=== PATIENT | male | born 1965 | race Caucasian/White ===

== ENCOUNTER 2023-02-15 11:16 | Inpatient (IN) | payer OTHER ==
[2023-02-15 11:35] VITALS: BMI 29.3
[2023-02-15] MEDS ORDERED: IBUPROFEN 400 MG TABLET (FP) PO PRN (13:10)
[2023-02-15] MEDS ORDERED: NALOXONE HCL 0.4 MG/ML VIAL IM PRN (13:10)
[2023-02-15] MEDS ORDERED: hydrOXYzine PAMOATE 25 MG CAPSULE (FP) PO PRN (13:10)
[2023-02-15] MEDS ORDERED: guaiFENesin 600 MG TABLET.ER (FP) PO PRN (13:10)
[2023-02-15] MEDS ORDERED: POLYETHYLENE GLYCOL (HEALTHYLAX) 3350 17 GM PACKET PO PRN (13:10)
[2023-02-15] MEDS ORDERED: BISMUTH SUBSALICYLATE 524 MG/30 ML PO PRN (13:10)
[2023-02-15] MEDS ORDERED: IBUPROFEN 600 MG TABLET (FP) PO PRN (13:10)
[2023-02-15] MEDS ORDERED: MAGNESIUM HYDROX 2400MG/30ML ORAL SUSPENSION 30 ML CUP PO PRN (13:10)
[2023-02-15] MEDS ORDERED: ONDANSETRON *ODT* 4 MG TABLET SL PRN (13:10)
[2023-02-15] MEDS ORDERED: BENZOCAINE/MENTHOL (CHLORASEPTIC ) LOZENGE MM PRN (13:10)
[2023-02-15] MEDS ORDERED: ACETAMINOPHEN 325 MG TABLET (FP) PO PRN (13:10)
[2023-02-15] MEDS ORDERED: DICYCLOMINE HCL 10 MG CAPSULE PO PRN (13:10)
[2023-02-15] MEDS ORDERED: BENZONATATE 200 MG CAPSULE PO PRN (13:10)
[2023-02-15] MEDS ORDERED: NALOXONE HCL (KLOXXADO) 8 MG SPRAY NS PRN (13:10)
[2023-02-15] MEDS ORDERED: MAG HYDROX/AL HYDROX/SIMETH 30 ML UNIT-DOSE CUP PO PRN (13:10)
[2023-02-15] MEDS ORDERED: LOPERAMIDE HCL 2 MG CAPSULE PO PRN (13:10)
[2023-02-15] MEDS ORDERED: NICOTINE 14 MG/24 HOURS TOPICAL PATCH TD ONE (13:38)
[2023-02-15] MEDS ORDERED: PRENATAL VITAMINS W/ FOLIC ACID TABLET (FP) PO ONE (13:39)
[2023-02-15] MEDS: PRENATAL VITAMINS W/ FOLIC ACID TABLET (FP) PO SCH (13:43)
[2023-02-15] MEDS: NICOTINE 14 MG/24 HOURS TOPICAL PATCH TD SCH (13:43)
[2023-02-15] MEDS: LORazepam 1 MG TABLET PO PRN (14:25)
[2023-02-15 14:55] LABS: HEMATOCRIT 41.6 % (35.4-49); HEMOGLOBIN 13.3 GM/dL (11.7-16.9); MCH 29.1 pg (25.7-33.7); MEAN CELL VOLUME 91.1 fl (80-96); MEAN PLT VOLUME 8.3 fl (7.5-11.1); PLATELET COUNT 252 10^3/uL (134-434); RBC 4.56 M/mm3 (4.00-5.60); WHITE BLOOD COUNT 7.9 K/mm3 (4.0-10.0)
[2023-02-15 15:02] LABS: POTASSIUM 4.9 mmol/L (3.5-5.1)
[2023-02-15 15:07] LABS: ALBUMIN 3.6 g/dl (3.4-5.0)
[2023-02-15 15:08] LABS: BLOOD UREA NITROGEN 13.1 mg/dL (7-18); CALCIUM 9.6 mg/dL (8.5-10.1)
[2023-02-15 15:11] LABS: CREATININE 1.2 mg/dL (0.55-1.3)
[2023-02-15 15:12] LABS: BILIRUBIN,TOTAL 0.3 mg/dL (0.2-1); TOT PROT 7.5 g/dl (6.4-8.2)
[2023-02-15] MEDS: LORazepam 2 MG TABLET PO SCH ×2 (17:22→22:28)
[2023-02-15] MEDS: MELATONIN 5 MG TABLETS PO SCH (22:26)
[2023-02-15] MEDS: THIAMINE HCL 100 MG TABLET (FP) PO SCH (22:27)
[2023-02-16] MEDS: LORazepam 2 MG TABLET PO SCH ×4 (05:18→22:07)
[2023-02-16] MEDS: PRENATAL VITAMINS W/ FOLIC ACID TABLET (FP) PO SCH (10:13)
[2023-02-16] MEDS: NICOTINE 14 MG/24 HOURS TOPICAL PATCH TD SCH (10:13)
[2023-02-16] MEDS ORDERED: INSULIN SLIDING SCALE (NOVOLOG) 1 VIAL SQ SCH (16:30)
[2023-02-16] MEDS: MELATONIN 5 MG TABLETS PO SCH (22:07)
[2023-02-16] MEDS: THIAMINE HCL 100 MG TABLET (FP) PO SCH (22:07)
[2023-02-16] MEDS: METHOCARBAMOL 500 MG TABLET PO PRN (22:08)
[2023-02-17] MEDS: LORazepam 1 MG TABLET PO SCH ×4 (05:07→22:20)
[2023-02-17] MEDS: INSULIN SLIDING SCALE (NOVOLOG) 1 VIAL SQ SCH ×3 (07:10→16:39)
[2023-02-17] MEDS: NICOTINE 14 MG/24 HOURS TOPICAL PATCH TD SCH (10:15)
[2023-02-17] MEDS: PRENATAL VITAMINS W/ FOLIC ACID TABLET (FP) PO SCH (10:15)
[2023-02-17] MEDS: LORazepam 1 MG TABLET PO PRN (13:25)
[2023-02-17] MEDS: THIAMINE HCL 100 MG TABLET (FP) PO SCH (22:20)
[2023-02-17] MEDS: MELATONIN 5 MG TABLETS PO SCH (22:20)
[2023-02-18] MEDS ORDERED: LORazepam 0.5 MG TABLET PO PRN
[2023-02-18] MEDS: LORazepam 0.5 MG TABLET PO SCH ×4 (05:23→22:15)
[2023-02-18] MEDS: INSULIN SLIDING SCALE (NOVOLOG) 1 VIAL SQ SCH ×3 (06:15→16:43)
[2023-02-18] MEDS: NICOTINE 14 MG/24 HOURS TOPICAL PATCH TD SCH (10:20)
[2023-02-18] MEDS: PRENATAL VITAMINS W/ FOLIC ACID TABLET (FP) PO SCH (10:20)
[2023-02-18] MEDS: METHOCARBAMOL 500 MG TABLET PO PRN (22:14)
[2023-02-18] MEDS: THIAMINE HCL 100 MG TABLET (FP) PO SCH (22:14)
[2023-02-18] MEDS: MELATONIN 5 MG TABLETS PO SCH (22:14)
[2023-02-19] MEDS ORDERED: LORazepam 0.5 MG TABLET PO ONE (05:00)
[2023-02-19 06:18] VITALS: RESP 18
[2023-02-19] MEDS: INSULIN SLIDING SCALE (NOVOLOG) 1 VIAL SQ SCH (06:48)
[2023-02-19 09:34] VITALS: BP 143/93; PULSE 79; TEMP 98.8
[2023-02-19] MEDS: PRENATAL VITAMINS W/ FOLIC ACID TABLET (FP) PO SCH (10:44)
[2023-02-19] MEDS: NICOTINE 14 MG/24 HOURS TOPICAL PATCH TD SCH (10:44)
== END 2023-02-19 10:07 | disposition home or self-care (01) | DRG 774 ==
LOC: YASAS 11:16 → Y3N 13:48
PROVIDERS: ADMIT Allergy & Immunology; ATTEND Allergy & Immunology
PROC: HZ2ZZZZ Detoxification Services for Substance Abuse Treatment (ICD-10-PCS; principal; 2023-02-15)
DX: F10.230 Alcohol dependence with withdrawal, uncomplicated (principal); F14.20 Cocaine dependence, uncomplicated; F17.210 Nicotine dependence, cigarettes, uncomplicated; F19.24 Other psychoactive substance dependence with psychoactive substance-induced mood disorder; E78.5 Hyperlipidemia, unspecified; I10 Essential (primary) hypertension; R73.03 Prediabetes; Z56.0 Unemployment, unspecified; Z59.02 Unsheltered homelessness; Z28.310 Unvaccinated for COVID-19; Z28.9 Immunization not carried out for unspecified reason
CPT/HCPCS: 36415; 71046-TC-FY; 80053; 82140; 82962; 85027; 86780; 87635; 87811; 93005; 93010